=== PATIENT | male | born 1945 | race Caucasian/White ===

== ENCOUNTER → 2016-10-10 | Outpatient (CLI) | payer MEDICARE, OTHER ==
[~2016-10-10] MED LIST: ASPIRIN 32325 MG/TAB PO; RANITIDINE HCL150 M1 PO; TYLENOL 325MG325 MG PO; ZOFRAN4 M2 PO
== END ==
LOC: CARDREHAB 07:52
DX: R06.09 Other forms of dyspnea (principal); F17.200 Nicotine dependence, unspecified, uncomplicated; Z82.49 Family history of ischemic heart disease and other diseases of the circulatory system

== ENCOUNTER → 2016-10-11 | Outpatient (CLI) | payer MEDICARE, OTHER | LOC: VAS 14:55 | DX: R06.09 Other forms of dyspnea (principal); Z82.49 Family history of ischemic heart disease and other diseases of the circulatory system; F17.210 Nicotine dependence, cigarettes, uncomplicated ==

== ENCOUNTER → 2016-10-23 | Outpatient (CLI) | payer MEDICARE, OTHER | LOC: PT 09:10 ==

== ENCOUNTER 2016-11-11 08:52 | Outpatient (RCR) | payer MEDICARE, OTHER ==
[2016-11-15] MEDS ORDERED: ZOFRAN4 M2 PO (18:14)
[2016-11-15] MEDS ORDERED: TYLENOL 325MG325 MG PO (18:14)
[2016-11-15] MEDS ORDERED: RANITIDINE HCL150 M1 PO (18:14)
[2016-11-15] MEDS ORDERED: ASPIRIN 32325 MG/TAB PO (18:15)
== END 2016-12-19 11:54 | disposition home or self-care (01) ==
LOC: PT 08:52
DX: Z47.1 Aftercare following joint replacement surgery (principal); Z96.651 Presence of right artificial knee joint; M17.11 Unilateral primary osteoarthritis, right knee

== ENCOUNTER → 2016-11-15 | Outpatient (CLI) | payer MEDICARE, OTHER ==
[2016-11-15 16:54] VITALS: BP 144/73
[2016-11-15 18:09] VITALS: BP 147/72
== END ==
LOC: AMSURD 16:42
DX: E86.0 Dehydration (principal)
CPT/HCPCS: J7030

== ENCOUNTER → 2016-12-02 | Outpatient (CLI) | payer MEDICARE, OTHER ==
[2016-11-15 18:09] VITALS: BP 147/72
== END ==
LOC: RAD 15:35
DX: K59.00 Constipation, unspecified (principal); T18.4XXA Foreign body in colon, initial encounter; K57.30 Diverticulosis of large intestine without perforation or abscess without bleeding

== ENCOUNTER → 2018-09-24 | Outpatient (CLI) | payer MEDICARE, OTHER ==
[2016-11-15 18:09] VITALS: BP 147/72
== END ==
LOC: RAD 14:46
DX: I77.9 Disorder of arteries and arterioles, unspecified (principal); I99.9 Unspecified disorder of circulatory system

== ENCOUNTER → 2018-09-25 | Outpatient (CLI) | payer MEDICARE, OTHER ==
[2016-11-15 18:09] VITALS: BP 147/72
== END ==
LOC: CARDREHAB 08:41
DX: I25.10 Atherosclerotic heart disease of native coronary artery without angina pectoris (principal)
CPT/HCPCS: A9500

== ENCOUNTER → 2019-09-20 | Outpatient (CLI) | payer MEDICARE, OTHER ==
[2016-11-15 18:09] VITALS: BP 147/72
[2019-09-20 11:39] LABS: HEMATOCRIT 50.6 % (42.0-52.0); HEMOGLOBIN 16.5 g/dL (13.5-18.0); MEAN PLATELET VOLUME 9.4 fl (7.4-10.4); RED BLOOD COUNT 5.55 M/mm3 (4.20-5.60); RED CELL DISTRIBUTION WIDTH 13.7 % (11.5-14.5); WHITE BLOOD COUNT 12.1 K/mm3 (4.8-10.8)
[2019-09-20 11:42] LABS: POTASSIUM 3.9 mmol/L (3.5-5.1)
[2019-09-20 11:43] LABS: CALCIUM 9.2 mg/dL (8.3-10.5)
[2019-09-20 11:44] LABS: TOTAL PROTEIN 7.3 g/dL (6.2-8.1)
[2019-09-20 11:46] LABS: TOTAL BILIRUBIN 0.4 mg/dL (0.2-1.2)
== END ==
LOC: LAB 11:12
PROVIDERS: Surgery
DX: C18.9 Malignant neoplasm of colon, unspecified (principal); R19.5 Other fecal abnormalities

== ENCOUNTER → 2019-09-21 | Outpatient (CLI) | payer MEDICARE, OTHER ==
[2016-11-15 18:09] VITALS: BP 147/72
== END ==
LOC: RAD 08:58
DX: C18.9 Malignant neoplasm of colon, unspecified (principal); K57.30 Diverticulosis of large intestine without perforation or abscess without bleeding; I70.0 Atherosclerosis of aorta; J43.9 Emphysema, unspecified
CPT/HCPCS: Q9967

== ENCOUNTER → 2024-05-12 | Outpatient (CLI) | payer MEDICARE | LOC: RAD 09:26 | DX: R10.84 Generalized abdominal pain (principal) ==

== ENCOUNTER 2024-05-21 10:00 | Outpatient (RCR) | payer MEDICARE | END 2024-05-24 | disposition home or self-care (01) | LOC: PT | DX: K52.9 Noninfective gastroenteritis and colitis, unspecified (principal) ==

== ENCOUNTER 2024-05-26 08:00 | Outpatient (RCR) | payer MEDICARE | END 2024-06-24 | disposition home or self-care (01) | LOC: PT | DX: K52.9 Noninfective gastroenteritis and colitis, unspecified (principal) ==

== ENCOUNTER → 2024-10-19 | Outpatient (CLI) | payer MEDICARE | LOC: RAD 12:53 | DX: K57.30 Diverticulosis of large intestine without perforation or abscess without bleeding (principal); R59.0 Localized enlarged lymph nodes; Z90.49 Acquired absence of other specified parts of digestive tract ==